=== PATIENT | male | born 1990 | race Caucasian/White ===

== ENCOUNTER 2021-04-27 02:27 | Emergency (ER) | payer OTHER ==
[~2021-04-27] VITALS: Ht 182.9 cm; Wt 86.2 kg
--- NOTE | 2021-04-27 03:02 | NUR ---
PT AAOX4. BIBSELF REQUESTING TO BE TRANSFERED TO [facility]. C/O "I WOULD LIKE TO BE BUT I AM NOT SUICIDAL." -PLAN -SI, -HI. PLACED IN BED 12, IN GOWN, ON MONITOR, AND PULSE OX. AWAITING ER MD FOR EVAL AND ORDERS. NO ACUTE DISTRESS NOTED. WILL CONTINUE TO MONITOR.
[2021-04-27 03:07] LABS: BILIRUBIN,URINE Negative (NEGATIVE); COLOR,URINE YELLOW (YELLOW); LEUKOCYTE ESTERASE ,URINE Negative (NEGATIVE); NITRITE, URINE Negative (NEGATIVE); PH,URINE 5.5 (5.0-8.0); PROTEIN,URINE Negative (NEGATIVE); UGLUCOSE Negative (NEGATIVE); UROBILINOGEN,URINE 0.2 EU/dL (0.2)
--- NOTE | 2021-04-27 03:19 | NUR ---
covid swab sent to lab
[2021-04-27 03:22] LABS: CALCIUM, SERUM 8.7 mg/dL (8.5-10.1); CARBON DIOXIDE 29 mmol/L (21-32); CHLORIDE 107 mmol/L (98-107); GLUCOSE 103 mg/dL (74-106); POTASSIUM 4.1 mmol/L (3.5-5.1); SODIUM SERUM 143 mmol/L (136-145); UREA NITROGEN, BLOOD 13 mg/dL (7-18)
[2021-04-27 03:25] LABS: BASOPHILS # (AUTO) 0.1 K/uL (0.0-0.2); BASOPHILS % (AUTO) 1.1 % (0.0-2.0); EOSINOPHILS % (AUTO) 1.2 % (0.0-6.0); HEMATOCRIT 46 % (39-51); HEMOGLOBIN 15.9 g/dL (13.5-17.5); LYMPHOCYTES # (AUTO) 2.3 K/uL (0.8-4.8); LYMPHOCYTES % (AUTO) 20.1 % (20.0-44.0); MEAN CORPUSCULAR HGB CONC 35 g/dl (31.0-36.0); MEAN CORPUSCULAR VOLUME 88 fL (80-96); MONOCYTES # (AUTO) 0.6 K/uL (0.1-1.30); MONOCYTES % (AUTO) 5.1 % (2.0-12.0); NEUTROPHILS # (AUTO) 8.2 K/uL (1.8-8.9); NEUTROPHILS % (AUTO) 72.5 % (43.0-81.0); PLATELET COUNT (AUTO) 263 K/uL (150-450); RED BLOOD CELL COUNT(AUTO) 5.23 MIL/uL (4.5-6.0); WHITE BLOOD COUNT (AUTO) 11.3 K/uL (4.3-11.0)
[2021-04-27 03:27] LABS: ALANINE AMINOTRANSFERASE 38 U/L (12-78); ALBUMIN 4.4 g/dL (3.4-5.0); ALKALINE PHOSPHATASE 102 U/L (46-116); ASPARTATE AMINOTRANSFERASE 26 U/L (15-37); BILIRUBIN,DIRECT 0.1 mg/dL (0.0-0.2); BILIRUBIN,TOTAL 0.3 mg/dL (0.2-1.0); TOTAL PROTEIN, SERUM 7.6 g/dL (6.4-8.2)
[2021-04-27 03:29] LABS: ACETAMINOPHEN 0 ug/ml (10-30)
[2021-04-27 03:30] LABS: ALCOHOL, BLOOD < 3 mg/dL (0-0)
--- NOTE | 2021-04-27 05:02 | NUR ---
PATIENT ALERT AND OREINTED RESTING COMFORTABLY NO COMPLAINTS AT THIS TIME.
--- NOTE | 2021-04-27 06:01 | NUR ---
PATIENT RESTING COMFORTABLY NO COMPLAINTS AT THIS TIME.
--- NOTE | 2021-04-27 15:04 | NUR ---
RESENT CLINICALS OF PT TO [facility].
--- NOTE | 2021-04-27 17:45 | NUR ---
CALLED [facility] FOR UPDATE AND WAS NOT GIVEN A BED OR AN ETA OF WHEN A BED WOULD BE READY.
--- NOTE | 2021-04-27 19:13 | NUR ---
[facility] ETA 5 MINUTES
--- NOTE | 2021-04-27 19:36 | NUR ---
REPORT GIVEN TO EMS AT BEDSIDE
[2021-04-27 20:01] VITALS: BP 126/71
== END 2021-04-27 19:40 ==
LOC: ER 02:50
DX: F32.A Depression, unspecified (principal); Z20.822 Contact with and (suspected) exposure to COVID-19; R03.0 Elevated blood-pressure reading, without diagnosis of hypertension
CPT/HCPCS: 36415; 80048; 80076; 80143; 80307; 80320; 81003; 85025; 87426; 99285; C9803; G0480